=== PATIENT | male | born 1970 | race Caucasian/White ===

== ENCOUNTER 2022-03-06 06:47 | Day surgery (SDC) | payer BC, SELFPAY ==
[2022-03-06] VITALS (20 sets, daily range): BP systolic 139–227; BP diastolic 83–128; PULSE 54–75; RESP 12–22; TEMP 36.5–36.9; O2SAT 92–100; BMI 32.5
[2022-03-06] MEDS: OXYMETAZOLINE 0.05% NASAL SPRAY 1 SPRAY NOSTRIL-B (07:40)
[2022-03-06] MEDS: SODIUM CHLORIDE 0.9 % (FLUSH) 10 ML SYRINGE IVF (07:40)
[2022-03-06] MEDS: LACTATED RINGERS 1000 ML 1,000 ML 100 ML IV (07:40)
[2022-03-06] MEDS: COCAINE HCL 4 % 4 ML SOLUTION NOSTRIL-B (08:31)
[2022-03-06] MEDS: MUPIROCIN 1 GM PACKET 1 APPLIC TOPICAL (08:31)
[2022-03-06] MEDS: BUPIVACAINE 0.25 %/EPI 1:200K 30 ml 10 ML INJECTION (08:38)
[2022-03-06] MEDS: AYR SALINE NASAL GEL 1 APPLIC NOSTRIL-B (09:07)
[2022-03-06] MEDS: HYDRALAZINE HCL 20 MG/ML inj 10 MG IVP ×2 (09:10→09:22)
--- NOTE | 2022-03-06 09:12 | W.ANESCHARGE ---
Anesthesia Charges Start Date/Time Anesthesia Start Date: 03/06/22 Anesthesia Start Time: 08:16 Stop Date/Time Anesthesia Stop Date: 03/06/22 Anesthesia Stop Time: 09:04 Summary Emergency: No
[2022-03-06] MEDS: fentaNYL 100 MCG/2 ML inj 50 MCG IVP ×2 (09:13→09:20)
--- NOTE | 2022-03-06 09:54 | W.ANESCHARGE ---
Anesthesia Charges Start Date/Time Anesthesia Start Date: 03/06/22 Anesthesia Start Time: 08:16 Stop Date/Time Anesthesia Stop Date: 03/06/22 Anesthesia Stop Time: 09:04 Summary Emergency: No
--- NOTE | 2022-03-06 10:09 | W.PM.ENTPROC ---
Procedure Note Date of procedure: 03/06/22 Procedure: Preoperative diagnosis nasal obstruction, deviated septum, left inferior turbinate hypertrophy. Postoperative diagnosis same procedure nasal septoplasty submucous partial resection inferior turbinates Under general endotracheal anesthesia patient was prepped and draped in usual fashion nose injected and decongested. A right hemitransection incision was made. Left anterior and posterior tunnels were created. A vertical incision was made through the cartilage and a right posterior tunnel created. The posterior deflected portions of septal bone resected. A single piece was trimmed and returned to intraseptal space. The left left premaxillary wing deformity was infractured and 1 mm strip of inferior septal cartilage was resected. This left a more than adequate amount for dorsal and tip support. The hemitransfixion was closed with 2 4-0 chromic sutures. A stab incision was made in the anterior left inferior turbinate a tunnel created with a Karol dissector. The diana bone was outfractured and a conservative anterior submucous resection performed buttlee ann avitia. The Coblation Wand was used for hemostasis and to cauterize intramurally along the inferior 10% of the turbinate. Silastic stents were then secured with 3 0 nylon and a Merocel pack coated in Bactroban was placed in each side of the nose. The inferior nasal rim had a small crack or laceration and this was closed with a single 5 0 interrupted plain gut. The patient top seizure well was taken recovery in satisfactory condition. Blood loss was less than 25 mL. Surgeon: Jesús Zhu MD
[2022-03-06] MEDS: LACTATED RINGERS 1000 ML 1,000 ML 50 ML IV (10:10)
--- NOTE | 2022-03-06 10:11 | W.PM.ENTPN ---
ENT-PN: Subj Subjective Time Seen by Provider: 10:30 Date Seen: 03/06/22 Interval history: Immediately postop patient was somewhat hypertensive. Anesthesia treated this. He had moderately excessive bleeding but this had settled down by the time I saw him. Packs were available to place I would not place an as he seemed to be bleeding a normal amount after the hypertension was controlled Progress Note: A&P Assessment and plan (1) Hypertension: Status: Acute Plan Postoperative hypertension. Dr. Juan zarco was consulted and is planning on initiating antihypertensive medication. We will keep a close eye on him for the next couple of hours. Time Spent With Patient Total time spent: 20 Exam Narrative: Exam Narrative: Normal postop appearance to nose minimal bleeding at this time Const: Vital Signs, click to edit/add: Vital Signs - 24 hr 03/06/22 07:25 03/06/22 07:30 03/06/22 07:35 Temperature 98.4 F Pulse Rate 54 L Respiratory Rate 16 Blood Pressure 197/116 H 180/116 H 198/117 H Pulse Oximetry 96 Oxygen Delivery Me thod Room Air 03/06/22 09:05 03/06/22 09:20 03/06/22 09:25 Temperature 98.2 F Pulse Rate 62 62 70 Respiratory Rate 22 18 16 Blood Pressure 227/119 H 193/104 H 166/102 H Pulse Oximetry 98 98 98 Oxygen Delivery Me thod Blow By Blow By Blow By 03/06/22 09:10 03/06/22 09:15 03/06/22 09:30 Temperature 98.3 F Pulse Rate 71 63 68 Respiratory Rate 20 20 16 Blood Pressure 179/128 H 184/109 H 173/105 H Pulse Oximetry 100 100 99 Oxygen Delivery Me thod Blow By Blow By Blow By 03/06/22 09:35 03/06/22 09:40 03/06/22 09:45 Temperature Pulse Rate 75 73 71 Respiratory Rate 16 16 16 Blood Pressure 168/101 H 174/101 H 174/108 H Pulse Oximetry 99 98 98 Oxygen Delivery Me thod Blow By Blow By Blow By 03/06/22 09:50 03/06/22 09:55 Temperature 98.3 F Pulse Rate 68 66 Respiratory Rate 12 12 Blood Pressure 139/83 151/92 H Pulse Oximetry 98 97 Oxygen Delivery Me thod Blow By Blow By
[2022-03-06] MEDS: IBUPROFEN 200 MG TABLET PO (10:52)
== END 2022-03-06 08:21 | disposition home or self-care (01) ==
PROVIDERS: PCP Internal Medicine; Visit Provider Otolaryngology
PROC: (CPT 30520; principal; 2022-03-06 08:00)
DX: J34.2 Deviated nasal septum (principal); J34.3 Hypertrophy of nasal turbinates; J34.89 Other specified disorders of nose and nasal sinuses
CPT/HCPCS: 30520; 30140; 00160; A9270; J0330; J0360; J1100; J2405; J2704; J3010; J7120

== ENCOUNTER 2022-03-12 13:09 | Outpatient (CLI) | payer BC, SELFPAY ==
--- OUTSIDE RECORDS SUMMARY | 2022-03-12 13:12 | XMS_ITS | Clinical Summary ---
:1970 Author Organization [facility] [place] [address] Care Team Providers Name Role Phone Unknown, Doctor Primary Care Provider Unavailable Allergies Active Allergy Reactions Severity Noted Date Comments Alfuzosin Dizziness, Throat Swelling/Closing High 2020 Codeine Intolerance-Can't Take 11/05/2006 dizzi ness Medications Medication Sig Dispensed Refills Start Date End Date Status allopurinol (ZYLOPRIM) Take 1 tablet by 30 tablet 2 06/14/2018 Active 100 mg mouth once daily. tabletIndications: Gout involving toe of right foot, unspecified cause, unspecified chronicity Silodosin 4 mg Take 1 capsule by 30 capsule 11 09/05/2020 Active capIndications: Weak mouth once daily. urine stream Active Problems Not on file Immunizations Name Administration Dates Next Due COVID-19 vaccine (iyzico 12/11/2020, 10/23/2020 30mcg/0.3mL) PF, MDV Influenza A (H1N1), Inactivated 07/18/2009 Influenza Virus, Unspecified 06/04/2016, 04/17/2015, 013, 05/01/2013 Influenza, IIV3 (Age 6-35 mos) 05/01/2013 Influenza, IIV4 05/16/2020, 08/03/2019, 06/04/2016, 04/17/2015 Td, Preservative Free (age >= 7 07/29/2010 Years) Tdap 07/29/2010 Tdap, Unspecified 07/29/2010 Tetanus/Diptheria 07/29/2010 Social History Tobacco Use Types Packs/Day Years Used Date Never Smoker Smokeless Tobacco: Never Used Tobacco Cessation: Counseling Given: Yes Alcohol Use Standard Drinks/Week Comments Yes 0 (1 standard drink = 0.6 oz pure alcoho l) very moderate Alcohol Habits Answer Date Recorded How often do you have a drink containing alcohol? 2-4 times a month 01/03/2020 How many drinks containing alcohol do you have on a 1 or 2 01/03/2020 typical day when you are drinking? How often do you have six or more drinks on one Never 01/03/2020 occasion? Comment: Not asked Sex Assigned at Date Recorded Not on file Obstetrics History Last Filed Vital Signs Vital Sign Reading Time Taken Comments Blood Pressure 139/92 12/11/2020 11:41 AM CDT Pulse 70 12/11/2020 11:41 AM CDT Temperature - - Respiratory Rate 18 01/03/2020 10:59 AM CDT Oxygen Saturation 96% 12/11/2020 11:41 AM CDT Inhaled Oxygen Concentration - - Weight 111.9 kg (246 lb 9.6 oz) 12/11/2020 11:41 AM CDT Height - - Body Mass Index - - Plan of Treatment Health Maintenance Due Date Last Done Comments Depression screening for age 12+ 1981 BMI (ht and wt on same day) for 1987 age 18+ Hepatitis C screening for age 1005/02/1987 18-79 Lipids for age 45-75 2014 Colonoscopy through age 75 11/05/2016 11/05/2006, 7 Zoster (shingles) series for age 1005/02/2019 50+ (1 of 2) Tetanus booster 07/29/2020 07/29/2010, 07/29/2010, 07/29/2010 COVID-19 vaccine series (3 - 05/13/2021 12/11/2020, 021 Booster for Pfizer series) Influenza for age 50-64 03/05/2022 05/16/2020, 08/03/2019, 06/04/2016, Additional history exists Tdap Completed 07/29/2010, 07/29/2010 Results Not on filefrom Last 3 Months Insurance Payer Benefit Plan / Subscriber ID Effective Dates Phone Addre ss Type Group BLUE CROSS BLUE CROSS OF [id number] 2020-Present [address] [address] [place] [address] (Work) [id number] Care Teams Wheel Polisher Relationship Specialty Start Date End Date Unknown, Doctor PCP - General 03/03/06 .
[2022-03-12 17:20] LABS: Chloride* 100 mmol/L (96-114)
[2022-03-12 17:21] LABS: Albumin* 4.6 g/dL (3.3-5.0); Potassium* 4.3 mmol/L (3.6-5.1); Sodium* 138 mmol/L (135-149)
[2022-03-12 17:24] LABS: Alanine Aminotransferase* 25 U/L (4-50); Alkaline Phosphatase* 112 U/L (40-150); Aspartate Amino Transferase* 25 U/L (12-35); Bilirubin Total* 0.7 mg/dL (0.1-1.5); Blood Urea Nitrogen* 22 mg/dL (7-30); Calcium* 9.4 mg/dL (8.4-10.6); Carbon Dioxide* 27 mmol/L (20-32); Cholesterol* 232 mg/dL (90-199); Creatinine* 1.7 mg/dL (0.5-1.5); Estimated Glomerular Filt Rate 48 ml/min; Glucose* 100 mg/dL (60-115); Total Protein* 7.9 g/dL (6.0-8.3); Triglycerides* 275 mg/dL (40-149)
[2022-03-12 17:25] LABS: HDL Cholesterol* 37 mg/dL (>=40); LDL Cholesterol Calculated 140 mg/dL (<100)
== END 2022-03-12 13:10 | disposition home or self-care (01) ==
PROVIDERS: PCP Internal Medicine; Visit Provider Internal Medicine
DX: I10 Essential (primary) hypertension (principal); Z12.5 Encounter for screening for malignant neoplasm of prostate; Z13.6 Encounter for screening for cardiovascular disorders
CPT/HCPCS: 80053; 80061; 84153; 87086

== ENCOUNTER 2022-04-10 14:57 | Outpatient (CLI) | payer BC, SELFPAY ==
--- OUTSIDE RECORDS SUMMARY | 2022-04-10 14:59 | XMS_ITS | Clinical Summary ---
:1970 Author Organization [facility] [place] [address] Care Team Providers Name Role Phone Unknown, [...] Name Administration Dates Next Due COVID-19 vaccine (Knok 12/11/2020, 10/23/2020 30mcg/0.3mL) PF, MDV Influenza A [...] Type Group BLUE CROSS BLUE CROSS OF [id number] 2020-Present [address] [address] [place] [address] (Work) [id number] Care Teams Improvement Advisor Relationship Specialty Start Date End Date Unknown, Doctor PCP - General 03/03/06 .
--- NOTE | 2022-04-10 15:00 | CRLHL7_ITS ---
For Patients: As a result of the Century Cures Act, medical imaging exams and procedure reports are released immediately into your electronic medical record. You may view this report before your referring provider. If you have questions, please contact your health care provider. INDICATION: Hypertension TECHNIQUE: Grayscale, color Doppler and power Doppler evaluation of the renal arteries. COMPARISON: None available FINDINGS: BILATERAL RENAL ARTERY DUPLEX ULTRASOUND ABDOMINAL AORTA: Peak systolic velocity = 113 cm/s. No aortic aneurysm. RIGHT KIDNEY: 9.6 cm in length. There is no hydronephrosis. Peak systolic velocity = 240 cm/second at the origin. Renal artery to aortic peak systolic velocity ratio = 2.1 Resistive indices: Less than 0.7 Renal vein = patent LEFT KIDNEY: 10.2 cm in length. There is no hydronephrosis. Peak systolic velocity = 148 cm/second at the proximal renal artery Renal artery to aortic peak systolic velocity ratio = 1.3 Resistive indices: Less than 0.7 Renal vein = patent IMPRESSION: Elevated peak systolic velocity at the right renal origin of 240 cm/second with a slightly elevated right renal artery ratio of 2.1. This could signify some degree of stenosis at the right renal artery origin and CTA suggested for further evaluation. Remainder unremarkable. Dictated by eKl Hugo MD @ 04/13/2022 9:30:47 AM (Electronically Signed)
== END 2022-04-10 14:58 | disposition home or self-care (01) ==
LOC: US 14:58
PROVIDERS: PCP Internal Medicine; Visit Provider Internal Medicine Nephrology
DX: I10 Essential (primary) hypertension (principal); N18.9 Chronic kidney disease, unspecified
CPT/HCPCS: 76775; 93975

== ENCOUNTER 2022-08-05 14:31 | Outpatient (CLI) | payer BC, SELFPAY ==
--- NOTE | 2022-08-05 14:00 | CRLHL7_ITS ---
For Patients: As a result of the Century Cures Act, medical imaging exams and procedure reports are released immediately into your electronic medical record. You may view this report before your referring provider. If you have questions, please contact your health care provider. INDICATION: RUQ PAIN COMPARISON: Renal Doppler ultrasound 04/10/2022. Noncontrast CT abdomen and pelvis 06/28/2013 TECHNIQUE: Real time alvarez scale imaging and color Doppler analysis was performed of the right upper quadrant. FINDINGS: The liver is diffusely coarsened and echogenic. Hypoechoic solid nodule is present within the right hepatic lobe measuring 1.3 x 1.2 x 1.3 cm. An additional hypoechoic solid nodule is present within the right hepatic lobe superiorly measuring 2.3 x 1.4 x 1.9 cm. A 3rd hypoechoic nodule is present within the left hepatic lobe measuring 1.7 x 1.2 x 1.7 cm. Simple cyst within the left hepatic lobe measuring 1.3 x 1.0 x 1.6 cm. There is a normal appearance of the hepatic IVC and proximal abdominal aorta. There is no evidence of ascites. The gallbladder is mildly distended and there is mild layering sludge. The gallbladder wall measures 2 mm in thickness. The common bile duct measures 10 mm in diameter at the level of the jc hepatis. The pancreas appears normal. There is no evidence of a stone or hydronephrosis within the right kidney. The right kidney measures 11.9 cm in length. IMPRESSION: Diffuse hepatic steatosis with 3 solid hypoechoic nodules within the liver, indeterminate. An incidental cyst is also present. Further evaluation with pre and post-contrast MRI of the liver recommended. Mildly distended gallbladder with mild layering dependent sludge and distension of the common bile duct measuring up to 1 cm. Further evaluation with HIDA scan suggested. Dictated by Kel Hugo MD @ 08/06/2022 10:39:28 AM (Electronically Signed)
== END 2022-08-05 14:32 | disposition home or self-care (01) ==
LOC: US 14:32
PROVIDERS: PCP Internal Medicine; Visit Provider Internal Medicine Nephrology
DX: R10.11 Right upper quadrant pain (principal); K76.0 Fatty (change of) liver, not elsewhere classified; K76.9 Liver disease, unspecified
CPT/HCPCS: 76705

== ENCOUNTER 2022-08-06 14:07 | Outpatient (CLI) | payer BC, SELFPAY ==
[2022-08-06 14:24] LABS: Creatinine Urine 245.1 mg/dL
[2022-08-06 14:31] LABS: Albumin* 4.5 g/dL (3.3-5.0); Chloride* 104 mmol/L (96-114); Potassium* 3.9 mmol/L (3.6-5.1); Sodium* 140 mmol/L (135-149)
[2022-08-06 14:33] LABS: Creatinine* 1.6 mg/dL (0.5-1.5); Estimated Glomerular Filt Rate 51 ml/min
[2022-08-06 14:34] LABS: Blood Urea Nitrogen* 23 mg/dL (7-30); Calcium* 9.1 mg/dL (8.4-10.6); Carbon Dioxide* 28 mmol/L (20-32); Glucose* 91 mg/dL (60-115); Phosphorus* 3.7 mg/dL (2.5-4.5); Uric Acid* 9.1 mg/dL (2.2-8.4)
[2022-08-06 14:41] LABS: Microalbumin Creatinine Ratio 80 mg/g (0-30); Microalbumin Urine 21 mg/dL
== END 2022-08-06 14:08 | disposition home or self-care (01) ==
PROVIDERS: PCP Internal Medicine; Visit Provider Internal Medicine Nephrology
DX: I10 Essential (primary) hypertension (principal); N18.9 Chronic kidney disease, unspecified
CPT/HCPCS: 80069; 82043; 82570; 84550; 87086

== ENCOUNTER 2022-08-19 10:08 | Outpatient (CLI) | payer BC, SELFPAY ==
--- NOTE | 2022-08-19 10:15 | CRLHL7_ITS ---
For Patients: As a result of the Century Cures Act, medical imaging exams and procedure reports are released immediately into your electronic medical record. You may view this report before your referring provider. If you have questions, please contact your health care provider. Indication: RUQ PAIN, GALLBLADDER SLUDGE, CYSTS IN LIVER Technique: Multiphasic, multi sequence MRI of the abdomen without and with intravenous contrast. 15 mL Dotarem administered intravenously. In addition, dedicated thin and thick slab MRCP images obtained. Comparison: Ultrasound dated 08/05/2022 Findings: The liver is non cirrhotic in morphology. Mild dropout on out of phase images compared to in phase images suggest hepatic steatosis. 10 mm liver cyst in segment 6. A 16 mm cyst is seen in segment 5 on image 26, series 8. An 11 mm lesion in segment 5 on image 24, series 8 demonstrates moderate T2 hyperintensity, hypointensity on T1 weighted images, and on the portal venous phase which is the earliest postcontrast exam, it is uniformly enhancing. On delayed phase sequences it is still hyperenhancing. A tiny lesion in segment 5 on image 26, series 8 appears to have similar characteristics. Patent portal and hepatic veins. The spleen is normal in size. Patent splenic and mesenteric veins. No ascites. No intra or extrahepatic biliary ductal dilatation. No suspicious filling defects or biliary strictures. The pancreatic duct is normal in caliber. No gallbladder distention or gallstones. The pancreatic parenchyma appears normal on T1 weighted fat saturated images. No suspicious mass lesion following contrast administration. Bilateral adrenal glands are normal in appearance. The kidneys enhance symmetrically without hydronephrosis. No suspicious lymphadenopathy in the abdomen. Visualized bowel is nondilated. No pleural or pericardial effusion in the lung bases. Bone marrow signal appears normal. Impression: 1. Diffuse hepatic steatosis. 2. Two of the liver lesions are simple cysts. 3. One or 2 additional tiny lesions in the inferior right hepatic lobe are indeterminate but favored to represent flash filling hemangiomas. The atypical hypoechoic appearance on the ultrasound may be related to underlying hepatic steatosis. Consider follow-up MRI in 3-6 months. 4. Gallbladder and biliary system appear normal. Dictated by Franklin Mcneill MD @ 08/24/2022 3:20:00 PM (Electronically Signed)
== END 2022-08-19 10:09 | disposition home or self-care (01) ==
LOC: MRI 10:08
PROVIDERS: PCP Internal Medicine; Visit Provider Internal Medicine Nephrology
DX: R10.11 Right upper quadrant pain (principal); K82.8 Other specified diseases of gallbladder; K76.0 Fatty (change of) liver, not elsewhere classified; K76.9 Liver disease, unspecified; K76.89 Other specified diseases of liver
CPT/HCPCS: 74183; 80076; A9575

== ENCOUNTER 2022-09-21 14:47 | Outpatient (CLI) | payer OTHER, SELFPAY | END 2022-09-21 14:48 | disposition home or self-care (01) | LOC: NFLDREF 14:49 | PROVIDERS: PCP Internal Medicine; Visit Provider Internal Medicine Nephrology | DX: Z01.818 Encounter for other preprocedural examination (principal); I10 Essential (primary) hypertension; E66.9 Obesity, unspecified; E78.5 Hyperlipidemia, unspecified; N18.9 Chronic kidney disease, unspecified | CPT/HCPCS: 80069; 82043; 82570 ==

== ENCOUNTER 2022-10-12 06:59 | Day surgery (SDC) | payer OTHER, SELFPAY ==
[2022-10-12] VITALS (17 sets, daily range): BP systolic 118–153; BP diastolic 71–96; PULSE 48–64; RESP 12–20; TEMP 36.2–36.8; O2SAT 92–99; BMI 28.3
[2022-10-12] MEDS: LACTATED RINGERS 1000 ML 1,000 ML 100 ML IV (07:42)
[2022-10-12] MEDS: SODIUM CHLORIDE 0.9 % (FLUSH) 10 ML SYRINGE IVF (07:43)
--- NOTE | 2022-10-12 07:44 | SUR.PREOP ---
Covid test noted by RN NEGATIVE
--- NOTE | 2022-10-12 08:38 | W.ANESCHARGE ---
Anesthesia Charges Start Date/Time Anesthesia Start Date: 10/12/22 Anesthesia Start Time: 08:51 Stop Date/Time Anesthesia Stop Date: 10/12/22 Anesthesia Stop Time: 10:15
--- NOTE | 2022-10-12 08:43 | P.GSOP_ITS ---
Operative Note Date of procedure: 10/12/22 Pre-op diagnosis: 1. Chronic cholecystitis. 2. Umbilical hernia. Post-op diagnosis: Same Type of Procedure: 1. Laparoscopic cholecystectomy. 2. Umbilical hernia repair without mesh. Indications: 52-year-old male was seen in clinic for evaluation of right upper quadrant abdominal pain that started a few months ago. He initially developed an episode of severe right flank pain that was wrapping around the right upper quadrant. This continued for a week. Since then he continued to have low background of pain in the right upper quadrant. He was not sure what was making the pain better or worse. However, prior to his visit in clinic he felt ill after eating a hamburger for dinner. Patient eliminated fat from his diet and his painful episodes were mild. Patient had a gallbladder ultrasound that showed indeterminate liver nodules. His gallbladder had sludge in the gallbladder wall was 2 mm. Patient's common bile duct was measuring at 10 mm. There was no pericholecystic fluid. patient's liver function tests were normal. Patient then had an abdominal MRI and MRCP that showed that the larger nodules in the liver were cysts and the smaller nodules were difficult to characterize but were more likely to be hemangiomas. Patient's MRCP did not show any biliary duct masses or filling defect concerning for common bile duct stone. given patient's clinical presentation and his imaging findings, laparoscopic cholecystectomy was recommended. The procedure was discussed in detail. The risks associated pr ocedure including infection, bleeding, injury to the common bile duct, and injury to intra-abdominal organs were all discussed with the patient, and he agreed to proceed. Procedure Description: After discussing the risks and benefits of the procedure, the patient signed informed consent.? The operative site was marked and the patient was brought to the operating room and placed on the operating table in supine position.? Care was taken to pad the patient's pressure points.?? The patient was then intubated by anesthesia.?? The operative site was then prepped and draped in the usual sterile fashion.? A time-out was then performed. A 5-mm laparoscopy port was placed in the left upper quadrant guided by a 5-mm laparoscope placed into a translucent trochar.~ Passage through the layers of the abdominal wall was visualized with the laparoscope.~ A pneumoperitoneum was established. A 0-degree 5-mm laparoscope was advanced into the abdomen. The abdomen was briefly surveyed, and no adhesions were noted. A 10-mm port were placed infraumbilically through the existing umbilical hernia defect and two more 5 mm ports were placed on the right under direct visualization by laparoscope. The camera was then changed to 10 mm 30-degree scope and placed into the abdomen through the 10 mm port. The left upper quadrant port entrance was examined and no injury to intra-abdominal organs was identified. The gallbladder was identified, the fundus grasped and retracted cephalad. Omental adhesions were taken down off the gallbladder with cautery. The infundibulum was grasped and retracted laterally, exposing the peritoneum overlying the triangle of Calot. This was then divided and exposed in a blunt fashion and with hook cautery. Common bile duct was not identified but care was taken not to injure it. The cystic duct was clearly identified and bluntly dissected circumferentially. Cystic artery was identified and tissues around it were dissected off. The cystic artery and the cystic duct were clearly going into the gallbladder. The cystic duct was then doubly ligated with surgical clips on the patient's side and singly clipped on the gallbladder side and divided. The cystic artery was then similarly ligated with clips and divided as well. The gallbladder was dissected from the liver bed in retrograde fashion using hookcautery. There was a prominent vein in the medial gallbladder fossa. This was controlled with a single clip on the patient's side and divided with cautery on the gallbladder side. The gallbladder was placed into an Endo-Catch bag and removed through the infraumbilical incision. Surgical site was examined for bleeding. No bleeding was seen in the surgical field. The fat around the umbilical defect was dissected with cautery. Intra-abdominal fat was dissected away from the fascial opening with cautery. The umbilical hernia defect was approximately 9 mm. This was then closed with interrupted 0-0 Nurolon stitches. This closure was examined intra-abdominally and no intra- abdominal organs were incarcerated in the closure. Pneumoperitoneum was completely reduced after viewing removal of the trocars u nder direct vision. The skin was then closed with 4-0 monocryl and steristrips were applied. Instrument, sponge, and needle counts were correct at closure and at the conclusion of the case. The patient was transferred to PACU in stable condition. Findings: No acute inflammation noted around the gallbladder. The gallbladder was mildly distended. Anesthesia: GETA Surgeon: Ted Mg MD Estimated blood loss (mL): 5 Specimen: Gallbladder Condition: stable Disposition: PACU
--- NOTE | 2022-10-12 09:31 | W.ANESCHARGE ---
Anesthesia Charges Start Date/Time Anesthesia Start Date: 10/12/22 Anesthesia Start Time: 08:51 Stop Date/Time Anesthesia Stop Date: 10/12/22 Anesthesia Stop Time: 10:15
[2022-10-12] MEDS: BUPIVACAINE 0.25% 30 ML INJECTION (09:50)
[2022-10-12] MEDS: fentaNYL 100 MCG/2 ML inj 50 MCG IVP ×2 (10:40→10:51)
[2022-10-12] MEDS: TRAMADOL HCL 50 MG TABLET PO (11:18)
--- NOTE | 2022-10-12 12:21 | SUR.PHASEII ---
Pt up in chair dressed with minimal assist pain better had alot of burping and said felt better will allow to rest a bit longer and then discharged to home
== END 2022-10-12 13:10 | disposition home or self-care (01) ==
PROVIDERS: PCP Internal Medicine; Visit Provider Surgery
PROC: 0FT44ZZ Resection of Gallbladder, Percutaneous Endoscopic Approach (ICD-10-PCS; CPT 47562; principal; 2022-10-12 08:15)
DX: K81.1 Chronic cholecystitis (principal); K42.9 Umbilical hernia without obstruction or gangrene
CPT/HCPCS: 47562; 49591; 00790; 88304; A9270; J1100; J2250; J2405; J2704; J3010; J3490; J7120

== ENCOUNTER 2023-01-25 11:43 | Outpatient (CLI) | payer OTHER, SELFPAY | END 2023-01-25 11:44 | disposition home or self-care (01) | LOC: NFLDREF 01-27 11:54 | PROVIDERS: PCP Internal Medicine; Referring Provider Internal Medicine; Visit Provider Internal Medicine Nephrology | DX: I10 Essential (primary) hypertension (principal); M10.9 Gout, unspecified; N18.9 Chronic kidney disease, unspecified; N20.9 Urinary calculus, unspecified | CPT/HCPCS: 80069; 82043; 82570; 84550 ==

== ENCOUNTER 2023-01-27 09:00 | Outpatient (CLI) | payer OTHER, SELFPAY | END 2023-01-27 09:01 | disposition home or self-care (01) | LOC: NFLDREF 02-03 02:50 | PROVIDERS: PCP Internal Medicine; Referring Provider Internal Medicine; Visit Provider Internal Medicine Nephrology | DX: I10 Essential (primary) hypertension (principal); M10.9 Gout, unspecified; N18.9 Chronic kidney disease, unspecified; N20.9 Urinary calculus, unspecified | CPT/HCPCS: 82340; 82436; 82507; 83735; 83945; 83986; 84105; 84133; 84300; 84392; 84560 ==

== ENCOUNTER 2023-05-31 09:44 | Outpatient (CLI) | payer OTHER, SELFPAY ==
--- NOTE | 2023-05-31 10:00 | CRLHL7_ITS ---
For Patients: As a result of the Century Cures Act, medical imaging exams and procedure reports are released immediately into your electronic medical record. You may view this report before your referring provider. If you have questions, please contact your health care provider. INDICATION: Liver cysts. COMPARISON: MRI dated 08/19/2022, and CT dated 06/28/2013. TECHNIQUE: Renal stone protocol CT of the abdomen and pelvis without contrast. FINDINGS: No right-sided renal calculi. Nonobstructive calculus in the lower pole left kidney measures 5 mm. No hydronephrosis or ureterectasis. No urinary bladder calculi. Incomplete distention of the urinary bladder, however. The prostate and seminal vesicles appear grossly unremarkable/symmetric. Mild colonic diverticulosis in the sigmoid colon. The pancreas, adrenal glands, and spleen appear unremarkable. Cholecystectomy change. Small liver cysts. The lung bases appear normal. The bowel is normal in caliber. No abdominal aortic aneurysm. No aggressive-appearing osseous lesion. IMPRESSION: Small nonobstructive calculus in the lower pole left kidney. Please note that all CT scans at this facility use dose modulation, iterative reconstruction, and/or weight-based dosing when appropriate to reduce radiation dose to as low as reasonably achievable. Dictated by Franklin Mcneill MD @ 06/02/2023 2:59:45 PM (Electronically Signed)
== END 2023-05-31 09:45 | disposition home or self-care (01) ==
LOC: CT 09:45
PROVIDERS: PCP Internal Medicine; Visit Provider Internal Medicine Nephrology
DX: K76.89 Other specified diseases of liver (principal); N20.0 Calculus of kidney
CPT/HCPCS: 74176

== ENCOUNTER 2023-06-03 11:52 | Outpatient (CLI) | payer OTHER, SELFPAY | END 2023-06-03 11:53 | disposition home or self-care (01) | LOC: NFLDREF 15:52 | PROVIDERS: PCP Internal Medicine; Referring Provider Internal Medicine; Visit Provider Internal Medicine Nephrology | DX: I10 Essential (primary) hypertension (principal); M10.9 Gout, unspecified; N18.9 Chronic kidney disease, unspecified; N20.9 Urinary calculus, unspecified | CPT/HCPCS: 80069; 82043; 82310; 82570; 83970; 84550 ==

== ENCOUNTER 2023-06-08 08:15 | Outpatient (CLI) | payer OTHER, SELFPAY | END 2023-06-08 08:16 | disposition home or self-care (01) | LOC: NFLDREF 06-16 07:29 | PROVIDERS: PCP Internal Medicine; Referring Provider Internal Medicine; Visit Provider Internal Medicine Nephrology | DX: I10 Essential (primary) hypertension (principal); M10.9 Gout, unspecified; N18.9 Chronic kidney disease, unspecified; N20.9 Urinary calculus, unspecified | CPT/HCPCS: 82340; 82436; 82507; 83735; 83945; 83986; 84105; 84133; 84300; 84392; 84560 ==

== ENCOUNTER 2023-12-06 13:22 | Outpatient (CLI) | payer OTHER, SELFPAY ==
--- OUTSIDE RECORDS SUMMARY | 2023-12-23 14:55 | XMS_ITS | Clinical Summary ---
Author Organization [facility] Address [place], [place] [address] Care Team Providers Care Picc Nurse Name Role Phone Unknown, Doctor Primary Care Provider Unavailabl e Allergies Active Allergy Reactions Criticality Noted Date Comments Alfuzosin Dizziness,Throat Swelling/Closing High Codeine Intolerance-Can't Take 11/05/2006 dizziness Medications Medication Sig Dispensed Refills Start Date End Date Status allopurinol (ZYLOPRIM) 100 mg tabletIndications:Gou t involving toe of right foot, unspecified cause, unspecified chronicity Take 1 tablet by mouth once daily. 30 tablet 2 06/14/2018 Active Silodosin 4 mg capIndications:Weak urine stream Take 1 capsule by mouth once daily. 30 capsule 11 09/05/2020 Active Immunizations Name Administration Dates Next Due COVID-19 vaccine ([employer] 30mcg/0.3mL) PF MDSeema 12/11/2020,10/23/2020 Influenza A (H1N1), Inactivated 07/18/2009 Influenza Virus, Unspecified 06/04/2016, 04/17/2015,05/01/2013,2012 Influenza, IIV3 (Age 6-35 mos) 05/01/2013 Influenza, IIV4 05/16/2020, 0,06/04/2016,2014 Td, Preservative Free (age > = 7 Years) 07/29/2010 Tdap 07/29/2010 Tdap, Unspecified 07/29/2010 Tetanus/Diptheria 07/29/2010 Social History Tobacco Use Types Packs/Day Years Used Date Smoking Tobacco: Never Smokeless Tobacco: Never Tobacco Cessation:Counseling Given: Yes Alcohol Use Standard Drinks/Week Comments Yes 0 (1 standard drink = 0.6 oz pur e alcohol) very moderate Sex and Gender Information Value Date Recorded Sex Assigned at Not on file Gender Identity Not on file Sexual Orientation Not on file Obstetrics History Last Filed Vital Signs Vital Sign Reading Time Taken Comments Blood Pressure 139/92 12/11/2020 11:41 AM CDT Pulse 70 12/11/2020 11:41 AM CDT Temperature - - Respiratory Rate 18 01/03/2020 10:5 9 AM CDT Oxygen Saturation 96% 12/11/2020 11: 41 AM CDT Inhaled Oxygen Concentration - - Weight 111.9 kg (246 lb 9.6 oz) 021 11:41 AM CDT Height - - Body Mass Index - - Plan of Treatment Health Maintenance Due Date Last Done Comments Depression screening for age 12+ 1981 HIV for age 15-65 1984 BMI (ht and wt on same day) for age 18+ 1987 Hepatitis C screening for age 18-79 1987 Lipids for age 45-75 2014 Colonoscopy through age 75 11/05/2016 11/05/2006, Zoster (shingles) series for age 50+ (1 of 2) 2019 Tetanus booster 07/29/2020 07/29/2010, 07/06, 07/29/2010 COVID-19 vaccine series ( season) 2023 08/01/2021, 12/11/2020, 10/23/2020 Influenza for age 50-64 03/05/2024 05/16/20 20, 08/03/2019, 06/04/2016, Additional history exists Tdap Completed 07/29/2010, 07/29/2010 Pneumococcal series for age 6-64 Aged Out No longer eligible based on patient's age to complete this topic Procedures Procedure Name Priority Date/Time Associated Diagnosis Comments SCAN-COLONOSCOPY 11/05/2006 11:2 7 AM CDT from Last 3 Months or Most Recently Relevant to Health Maintenance Results * SCAN-COLONOSCOPY (11/05/2006 11:27 AM CDT) Scanner OTHER from Last 3 Months or Most Recently Relevant to Health Maintenance Care Teams Picc Nurse Relationship Specialty Start Date End Date Unknown, Doctor . PCP - General 03/03/06
== END 2023-12-06 13:23 | disposition home or self-care (01) ==
LOC: NFLDREF 12-23 14:54
PROVIDERS: PCP Internal Medicine; Referring Provider Internal Medicine; Visit Provider Internal Medicine Nephrology
DX: N20.9 Urinary calculus, unspecified (principal); I12.9 Hypertensive chronic kidney disease with stage 1 through stage 4 chronic kidney disease, or unspecified chronic kidney disease; N18.31 Chronic kidney disease, stage 3a
CPT/HCPCS: 80069; 82043; 82306; 82570; 82728; 83540; 83550; 83970; 84550; 87086

== ENCOUNTER 2024-06-15 13:13 | Outpatient (CLI) | payer OTHER, SELFPAY | END 2024-06-15 13:14 | disposition home or self-care (01) | PROVIDERS: PCP Internal Medicine; Visit Provider Internal Medicine | DX: R10.9 Unspecified abdominal pain (principal); I10 Essential (primary) hypertension | CPT/HCPCS: 80053; 85379; 87086 ==

== ENCOUNTER 2024-06-23 07:00 | Outpatient (CLI) | payer OTHER, SELFPAY ==
--- NOTE | 2024-06-23 07:15 | CRLHL7_ITS ---
For Patients: As a result of the Century Cures Act, medical imaging exams and procedure reports are released immediately into your electronic medical record. You may view this report before your referring provider. If you have questions, please contact your health care provider. INDICATION: Abdominal pain COMPARISON: CT 05/31/23, MRI 08/19/22, US 08/05/22 TECHNIQUE: Real time alvarez scale imaging and color Doppler analysis was performed of the right upper quadrant. FINDINGS: Liver echotexture is diffusely coarsened and increased. Liver measures 16.3 cm. Simple cyst within the inferior right hepatic lobe measures 1.4 x 1.2 x 1.7 cm. Main portal vein measures 1.2 cm. Antegrade flow in the main portal vein measuring 22.3 cm/second. Gallbladder absent. Common bile duct is distended measuring up to 13.6 millimeters. Possible echogenic foci within the distal common bile duct. The pancreas is difficult to visualize due to overlying bowel gas. Aorta and IVC unremarkable. Normal right kidney without hydronephrosis. Right kidney measures 11.1 cm. IMPRESSION: Diffuse hepatic steatosis. Incidental simple intrahepatic cyst. Status post cholecystectomy with prominence of the common bile duct measuring up to 13.6 millimeters. Possible choledocholithiasis. Consider MRCP for further evaluation. Dictated by Kel Hugo MD @ 06/23/2024 9:28:21 AM (Electronically Signed)
== END 2024-06-23 07:01 | disposition home or self-care (01) ==
LOC: US 07:00
PROVIDERS: PCP Internal Medicine; Visit Provider Internal Medicine
DX: R10.9 Unspecified abdominal pain (principal); K76.0 Fatty (change of) liver, not elsewhere classified; K76.89 Other specified diseases of liver
CPT/HCPCS: 76705

== ENCOUNTER 2024-07-06 07:08 | Outpatient (CLI) | payer OTHER, SELFPAY ==
--- NOTE | 2024-07-06 07:15 | CRLHL7_ITS ---
For Patients: As a result of the Century Cures Act, medical imaging exams and procedure reports are released immediately into your electronic medical record. You may view this report before your referring provider. If you have questions, please contact your health care provider. INDICATION: Abdominal pain TECHNIQUE: 1.5 T MRI of the abdomen was performed with T2 weighted imaging; in and out of phase imaging; 3D MRCP imaging was obtained. No intravenous contrast was administered COMPARISON: Abdominal ultrasound 06/23/2024 FINDINGS: Lungs: The lung bases are clear. No pleural or pericardial effusion. Liver: Homogeneous liver parenchyma. No hepatic masses. Right hepatic lobe T2 hyperintense and T2 intermediate lesions are incompletely characterized in the absence of intravenous contrast but possibly benign cysts and hemangiomas. Hepatic steatosis. Biliary tree and gallbladder: Prior cholecystectomy. Possible round T2 hypointense lesion in the distal common bile duct measuring 4 mm (01/25) appreciated only on T2 HASTE axial and coronal sequences, although not definitely seen on MRCP images or axial thin T2 SPAIR. Similar mild intrahepatic dilation and moderate dilation of the common bile duct measuring up to 1.3 cm. Spleen: Unremarkable Pancreas: Fatty atrophy of the pancreatic parenchyma. No pancreatic masses. No pancreatic duct dilation. Adrenal glands: Unremarkable. Kidneys and ureters: No renal masses or hydronephrosis. GI tract: No evidence of obstruction or inflammation. Vasculature: The IVC and aorta are normal in caliber. No abdominal aortic aneurysm. Lymph nodes: No lymphadenopathy. Abdominal wall: Unremarkable Bones: Degenerative change of the imaged spine. IMPRESSION: 1. Possible choledocholithiasis versus artifact with similar moderate intra and extrahepatic biliary dilation. Consider further evaluation with ERCP. Please correlate with biliary labs for evidence of obstruction. 2. Hepatic steatosis. Dictated by Cherry Bailon MD @ 07/06/2024 11:19:29 AM (Electronically Signed)
== END 2024-07-06 07:09 | disposition home or self-care (01) ==
PROVIDERS: PCP Internal Medicine; Visit Provider Internal Medicine
DX: R10.9 Unspecified abdominal pain (principal); K76.0 Fatty (change of) liver, not elsewhere classified
CPT/HCPCS: 74181

== ENCOUNTER 2024-08-02 08:53 | Outpatient (CLI) | payer OTHER, SELFPAY | END 2024-08-02 08:54 | disposition home or self-care (01) | LOC: NFLDREF 08-07 02:38 | PROVIDERS: PCP Internal Medicine; Referring Provider Internal Medicine Nephrology; Visit Provider Internal Medicine Nephrology | DX: I12.9 Hypertensive chronic kidney disease with stage 1 through stage 4 chronic kidney disease, or unspecified chronic kidney disease (principal); N18.31 Chronic kidney disease, stage 3a; M10.9 Gout, unspecified; N20.9 Urinary calculus, unspecified; E78.5 Hyperlipidemia, unspecified | CPT/HCPCS: 80061; 80069; 82043; 82570; 83970; 84450; 84460; 84550; 86140; 87086 ==

== ENCOUNTER 2024-11-19 06:49 | Emergency (ER) | payer OTHER, SELFPAY ==
[2024-11-19 06:56] VITALS: BP 179/97; PULSE 64; RESP 20; TEMP 36.3; O2SAT 97; BMI 29.7
--- NOTE | 2024-11-19 07:13 | CRLHL7_ITS ---
For Patients: As a result of the Century Cures Act, medical imaging exams and procedure reports are released immediately into your electronic medical record. You may view this report before your referring provider. If you have questions, please contact your health care provider. INDICATION: Left lower quadrant abdominal pain TECHNIQUE: CT abdomen and pelvis acquired with 110 cc Isovue 370 IV contrast. COMPARISON: MR abdomen 07/06/2024, CT abdomen pelvis 05/31/2023. FINDINGS: Lower chest: Stable 2 millimeter nodule in the right middle lobe (3/11), and in the left lower lobe (3/13), stable since 2022 and likely benign. Liver: Hepatic cysts. Gallbladder and bile ducts: Cholecystectomy. Intra and extrahepatic biliary ductal dilation is slightly increased compared to 07/06/2024, with the common bile duct measuring 13 millimeters. Pancreas: Unremarkable. No mass or inflammation. Spleen: Unremarkable. Normal in size. No masses. Adrenal glands: Unremarkable. Kidneys: Moderate left hydronephrosis and hydroureter with a 7 x 4 x 7 millimeter stone at the left UVJ (2, ). Delayed left nephrogram and trace perinephric fluid. No hydronephrosis or nephrolithiasis in the right kidney. GI tract: Small duodenal diverticulum. No obstruction. Minimal colonic diverticulosis without diverticulitis. Appendectomy. Vasculature: Abdominal aorta is normal in caliber. Mesenteric arteries are patent. Hook shaped celiac artery with mild stenosis of the origin can be seen with median arcuate ligament syndrome. Lymph nodes: No lymphadenopathy. Peritoneum/Abdominal Wall: Unremarkable. Pelvis: Unremarkable. Bones: Mild degenerative disease of the hips. IMPRESSION: There is a 7 x 4 x 7 millimeter stone at the left UVJ with resulting moderate left hydronephrosis, hydroureter, and renal congestion. Slightly increased intra and extrahepatic biliary ductal dilation compared to prior. If LFTs are abnormal, consider previously suggested ERCP. Please note that all CT scans at this facility use dose modulation, iterative reconstruction, and/or weight-based dosing when appropriate to reduce radiation dose to as low as reasonably achievable. Dictated by Arlene Key MD @ 11/19/2024 8:11:49 AM (Electronically Signed)
--- NOTE | 2024-11-19 07:15 | ED_ITS ---
HPI - General Adult General Chief complaint: Back Injury/Pain Stated complaint: lower back pain Time Seen by Provider: 11/19/24 07:01 Source: patient Mode of arrival: ambulatory Limitations: no limitations History of Present Illness HPI narrative: 54-year-old male presents with left lower quadrant abdominal pain that radiates the left flank for the past few hours. Also has a feeling of incomplete bladder emptying and suprapubic tenderness. No fever. No diarrhea, no nausea and vomiting. Originally thought it was his IBS acting up. No history of inflammatory bowel disease. Last colonoscopy was about 4 years ago. Mother had a history of colon cancer, therefore he gets colonoscopies about every 5 years. Does not report any known history of diverticular disease. He notes no blood in his urine. Pain is achy and constant and not worse with movement. Did not try taking any medications to help with his symptoms. Has had kidney stones in the past, reports that the pain does not quite feel similar. No prior history of diverticulitis. As well as abdominal surgeries, he has had a prior appendectomy and a prior cholecystectomy. Reports that these were both uncomplicated. Does not take any anticoagulants. Appetite elimination had been normal up until this morning. No geronimo dysuria but does have a feeling of incomplete bladder emptying. Bladder scans were 50-70 mL in triage. Was able to void about 80 mL prior to my interview. Past medical history notable for hypertension, gout. Home meds are amlodipine and allopurinol. Reports that he uses prednisone a couple of times per year for gout flares. Nonsmoker. ROS is notable for the abdominal/urogenital symptoms only, otherwise denies times 12 systems. Related Data Home Medications ?Medication ?Instructions ?Recorded ?Confirmed amlodipine 10 mg tablet 10 mg PO QDAY 08/03/22 08/07/24 prednisone 20 mg tablet 20 mg PO BID PRN 12/10/23 08/07/24 Previous Rx's ?Medication ?Instructions ?Recorded allopurinol 200 mg tablet 200 mg PO QDAY #90 tabs 09/27/23 tamsulosin 0.4 mg capsule (Flomax) 0.4 mg PO DAILY #10 caps 11/19/24 Allergies Allergy/AdvReac Type Severity Reaction Status Date / Time oxycodone Allergy Intermediate Vomiting Verified 11/19/24 07:53 codeine AdvReac Intermediate disassociat Verified 11/19/24 07:53 ion [facility] Medical History Right sided abdominal pain ?R10.9 - Unspecified abdominal pain (ICD-10) H/O irritable bowel syndrome ?Z87.19 - Personal history of other diseases of the digestive system (ICD-10) Hypertension ?I10 - Essential (primary) hypertension (ICD-10) History of Holter monitoring (2014) ?Z98.890 - Other specified postprocedural states (ICD-10) Surgical History S/P correction of deviated nasal septum ?Z98.890 - Other specified postprocedural states (ICD-10) S/P appendectomy ?Z90.49 - Acquired absence of other specified parts of digestive tract (ICD- 10) H/O hemorrhoidectomy ?Z98.890 - Other specified postprocedural states (ICD-10) H/O colonoscopy ?Z98.890 - Other specified postprocedural states (ICD-10) Family History Other Colon cancer Social History Narrative: 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 Smoking Status: Never smoker How often do you have a drink containing alcohol: 2-4 times a month Alcohol type: beer How many standard drinks containing alcohol do you have on a typical day: 1 or 2 How often do you have six or more drinks on one occasion: Never AUDIT-C Alcohol total score: 2 Non-prescribed substance use: denies use Caffeine: Yes (pop occ) Exam Const: Vital Signs, click to edit/add: Vital Signs - 24 hr 11/19/24 06:56 Temperature 97.4 F L Pulse Rate [Left P ulse Oximeter] 64 Respiratory Rate 20 Blood Pressure [Ri ght Upper Arm] 179/97 H Pulse Oximetry 97 Oxygen Delivery Me thod Room Air Documenting provider has reviewed patient's vital signs: yes Common normals: no apparent distress and alert General appearance: cooperative and well kempt HENMT: Common normals: normocephalic, moist oral mucous membranes and oropharynx normal Head and scalp: normocephalic Mouth: oral and palatal mucosa normal Eye: Common normals: conjunctivae normal General eye: normal appearance of both eyes Conjunctiva: conjunctiva(e) normal Neck & C-Spine: General: normal visual inspection Resp: Common normals: normal respiratory effort and no use of accessory muscles Effort & inspection: able to speak in complete sentences Cardio: Common normals: regular rate, regular rhythm, S1 normal heart sound, S2 normal heart sound and no murmurs Rate: regular rate Rhythm: regular rhythm Heart sounds: S1 normal and S2 normal GI: Common normals: Normal to inspection, nondistended, normoactive bowel sounds present, soft to palpation, no hepatosplenomegaly and no masses Palpation: soft and no hepatosplenomegaly Other: Mild to moderate tenderness in the left lower quadrant. No rebound tenderness or guarding. Other areas are nontender. Mass. : Common normals: no CVA tenderness Bladder/kidney exam: no CVA tenderness Back & Pelvis: Common normals: no CVA tenderness, thoracic and lumbar spine normal to inspection and no thoracic nor lumbar tenderness Neuro: Common normals: moves all extremities and no focal motor deficits Sensorium/orientation: alert Speech: speech normal Gait (neuro): normal gait (Observed on camera ambulating into ED) Motor exam: strength 5/5 throughout Psych: Appearance: well kempt Attitude: engaged Mood and affect: euthymic mood Attention/concentration: attention grossly intact M carlos/cognition: memory grossly intact Insight: insight good Judgement: judgment good Skin: Common normals: no rashes or lesions noted General skin exam: no rashes or lesions noted Course Course ED Course: 54-year-old male with left lower quadrant abdominal pain, rather insidious onset, achy and constant. Most likely kidney stone versus diverticulitis. Musculoskeletal etiology a little less likely but certainly possible. No rash that would make me suspicious of shingles but certainly could be other intra- abdominal processes like unusual presentation of pancreatitis, intestinal obstruction, less likely irritable bowel disease. Will place peripheral IV, obtain urinalysis. Toradol and Zofran for pain. CT of the abdomen and pelvis. I am electing to do this with contrast due to the fact that he has palpable tenderness. This would better distinguish between a kidney stone and diverticulitis. Await findings. May have to hand over care to incoming day shift partner. Reevaluation(s) Time of Reevaluation #1: 08:25 Reevaluation #1: Toradol did not improve patient's pain much, was given Dilaudid and this is doing much better. Counseled patient on the stone. He will call Urology in the morning, phone numbers were provided. By this she but this stone there is a chance it could pass but he is unfortunately likely to need urology intervention. Counseled on pain control Tylenol 1000 mg every 6 hours as needed for pain, prescription for 10 oxycodone tablets given 1-2 tablets q.6 hours p.r.n.. Prescription for Zofran provided as he reports that this can make him nauseated. We discussed Flomax, a 10 day course of this would be helpful. He may discontinue it if the stone does pass in the interim. Hopefully will cut down on the spasm pain for him. He has had thorough outpatient workup for the dilated biliary ducts. Will not pursue this further. Hesitant to put him on long-term NSAIDs due to his renal insufficiency. Alarm symptoms reviewed such as infection, weakness, signs of sepsis that would warrant more prompt ED evaluation. Written instructions provided. All questions answered. Vital Signs Vital signs: Initial Vital Signs Temperature 97.4 F L 11/19/24 06:56 Temperature Source Temporal Artery Scan 11/19/24 06:56 Pulse Rate 64 11/19/24 06:56 Pulse Rhythm Regular 11/19/24 06:56 Respiratory Rate 20 11/19/24 06:56 Blood Pressure 179/97 H 11/19/24 06:56 Blood Pressure Mean 124 H 11/19/24 06:56 Blood Pressure Position Sitting 11/19/24 06:56 Pulse Oximetry 97 11/19/24 06:56 Oxygen Delivery Method Room Air 11/19/24 06:56 Vital Signs Temperature 97.4 F L 11/19/24 06:56 Pulse Rate 64 11/19/24 06:56 Respiratory Rate 20 11/19/24 06:56 Blood Pressure 179/97 H 11/19/24 06:56 Pulse Oximetry 97 11/19/24 06:56 Oxygen Delivery Method Room Air 11/19/24 06:56 Temperature 97.4 F L 11/19/24 06:56 Pulse Rate 64 11/19/24 06:56 Respiratory Rate 20 11/19/24 06:56 Blood Pressure 179/97 H 11/19/24 06:56 Pulse Oximetry 97 11/19/24 06:56 Oxygen Delivery Method Room Air 11/19/24 06:56 Medications Administered Medications: Generic Name Dose Route Start Last Admin Trade Name Ashlee PRN Reason Stop Dose Admin Sodium Chloride 1,000 mls @ 1,000 mls/hr 11/19/24 07:59 11/19/24 08:06 0.9 % Sodium Chloride 1000 Ml IV 11/19/24 08:58 1,000 mls/hr .Q1H COLIN Administration Discontinued Medications Generic Name Dose Route Start Last Admin Trade Name Ashlee PRN Reason Stop Dose Admin Hydromorphone HCl 0.5 mg 11/19/24 07:58 11/19/24 08:06 Hydromorphone 0.5 Mg/0.5 Ml Inj IVP 11/19/24 07:59 0.5 mg ONCE ONE Administration Ketorolac Tromethamine 15 mg 11/19/24 07:14 11/19/24 07:25 Ketorolac 15 Mg/Ml Inj IVP 11/19/24 07:15 15 mg ONCE ONE Administration Ondansetron HCl 4 mg 11/19/24 07:14 11/19/24 07:25 Ondansetron 2 Mg/Ml Inj IVP 11/19/24 07:15 4 mg ONCE ONE Administration Medical Decision Making Lab Data Lab results reviewed: Yes I reviewed the patient's lab results Lab results narrative: Creatinine perfectly stable for patient. No significant leukocytosis, elevated inflammatory markers or other unexpected abnormalities. Normal lipase, normal LFTs. Urine suspicious for blood which is not surprising in the setting of kidney stone. No signs of urinary infection. Labs: Lab Results 11/19/24 11/19/24 11/19/24 Range/Units 07:00 07:20 07:27 WBC 8.24 (4.50-11.00) K/uL RBC 5.05 (4.30-5.90) m/uL Hgb 15.1 (13.5-17.5) gm/dL Hct 45.3 (37.0-53.0) % MCV 90 (80-100) fL MCH 30 (26-34) pg MCHC 33 (32-36) gm/dL RDW Coeff of Xiom[place] 13.1 (11.5-15.5) % Plt Count 271 (140-440) K/uL Neut % (Auto) 67.8 (42.0-72.0) % Lymph % (Auto) 23.1 (20-44) % [place] % (Auto) 7.3 (0.0-11.0) % Eos % (Auto) 1.5 (0.0-7.0) % Baso % (Auto) 0.2 (0.0-3.0) % Neut # (Auto) 5.59 (1.7-7.0) K/uL Lymph # (Auto) 1.90 (0.90-2.90) K/uL [place] # (Auto) 0.60 (0.00-0.90) K/UL Eos # (Auto) 0.12 (0.00-0.50) K/uL Baso # (Auto) 0.02 (0.00-0.30) K/uL Abs Immat Gran (auto) 0.01 (0.00-0.30) K/uL Imm/Tot Granulo (auto) 0.1 % Sodium 141 (135-149) mmol/L Potassium 3.7 (3.6-5.1) mmol/L Chloride 105 (96-114) mmol/L Carbon Dioxide 28 (20-32) mmol/L Anion Gap 8 (7-15) mEq/L BUN 17 (7-30) mg/dL Creatinine 1.7 H (0.5-1.5) mg/dL Estimated Creat Clear 55.49 Estimated GFR 47 ml/min Glucose 128 H (60-115) mg/dL Lactate 1.4 (0.5-1.9) mmol/L Calcium 8.7 (8.4-10.6) mg/dL Total Bilirubin 0.6 (0.1-1.5) mg/dL AST 29 (12-35) U/L ALT 26 (4-50) U/L Alkaline Phosphatase 108 (40-150) U/L C-Reactive Protein 0.6 (0.5-1.0) mg/dL Total Protein 7.6 (6.0-8.3) g/dL Albumin 4.5 (3.3-5.0) g/dL Lipase 61 (23-300) U/L Urine Color Yellow (Yellow) Urine Appearance Clear (Clear) Urine pH 6.5 (5.0-8.5) Ur Specific [place] 1.020 (1.000-1.030) Urine Protein 3+ A (Negative) Urine Glucose (UA) Negative (Negative) Urine Ketones Negative (Negative) Urine Blood 2+ A (Negative) Urine Nitrite Negative (Negative) Urine Bilirubin Negative (Negative) Urine Urobilinogen 0.2 (0.2-1.0) Ur Leukocyte Esterase Negative (Negative) Urine RBC 50-100 A (0-2) Urine WBC 0-2 (0-5) Ur Squamous Epith Cells Few (None-Few) Urine Bacteria Few A (None) Urine Mucus Moderate A (None) POC Creatinine 1.8 H (0.6-1.3) mg/dl Imaging Data CT scan - abdomen: Attestation: I have reviewed the pertinent imaging results. My impression: Large left distal ureteral stone with associated hydronephrosis Radiologist's impression: IMPRESSION: There is a 7 x 4 x 7 millimeter stone at the left UVJ with resulting moderate left hydronephrosis, hydroureter, and renal congestion. Slightly increased intra and extrahepatic biliary ductal dilation compared to prior. If LFTs are abnormal, consider previously suggested ERCP. Please note that all CT scans at this facility use dose modulation, iterative reconstruction, and/or weight-based dosing when appropriate to reduce radiation dose to as low as reasonably achievable. Dictated by Arlene Key MD @ 11/19/2024 8:11:49 AM Discharge Plan Discharge Clinical Impression: Left ureteral stone Patient Disposition: Home w/ Parent or Adult Condition: Improved Instructions: Ureteral Stones (ED), Ureteral Stent Placement (DC) Additional Instructions: As we discussed, you have a 7 mm stone on the left ureter, near the junction of the bladder. Typically once the size do need intervention to help pass but because of the shape of yours, there is a small chance you could pass this without assistance. I would like for you to strain your urine so that you will know if it does in fact past. Please call [place] [facility] at [phone] to secure an appointment within the next week or so. In the meantime, drink lots of fluids to help flush this through. For pain use Tylenol 1000 mg every 6 hours. I will give you a small supply of oxycodone to use for severe pain. Consider using a stool softener to help prevent constipation. Would also recommend we start you on Flomax, a medication that will help dilate open the urinary tract slightly and reduce spasm. If you have high fever, se gibson nausea and vomiting, signs of dehydration or other complication, please return to the emergency department in the meantime. I have also provided a prescription for Zofran, also known as ondansetron a common anti nausea medicine as kidney stones in this area do often cause nausea. Activity Level: Activity as Tolerated Discharge Diet: Regular Prescriptions: New tamsulosin [Flomax] 0.4 mg capsule 0.4 mg PO DAILY Qty: 10 1RF Rx Instructions: To help kidney stone pass, May discontinue once stone passes No Action amlodipine 10 mg tablet 10 mg PO QDAY allopurinol 200 mg tablet 200 mg PO QDAY Qty: 90 3RF prednisone 20 mg tablet 20 mg PO BID PRN Follow Up/Referrals: Zana Mejia MD [Primary Care Provider] - Stand Alone Forms: [employer] Info Instructions
[2024-11-19 07:16] LABS: Appearance Urine Clear (Clear); Bilirubin Urine Negative (Negative); Blood Urine 2+ (Negative); Color Urine Yellow (Yellow); Glucose Urine Negative (Negative); Ketones Urine Negative (Negative); Leukocyte Esterase Urine Negative (Negative); Nitrite Urine Negative (Negative); Protein Urine 3+ (Negative); Urobilinogen Urine 0.2 (0.2-1.0); pH Urine 6.5 (5.0-8.5)
[2024-11-19 07:23] LABS: Lactate* 1.4 mmol/L (0.5-1.9)
[2024-11-19 07:24] LABS: Basophils Absolute Auto 0.02 K/uL (0.00-0.30); Basophils Percent Auto 0.2 % (0.0-3.0); Eosinophils Absolute Auto 0.12 K/uL (0.00-0.50); Eosinophils Percent Auto 1.5 % (0.0-7.0); Hematocrit 45.3 % (37.0-53.0); Hemoglobin* 15.1 gm/dL (13.5-17.5); Immature Granulocytes Abs Auto 0.01 K/uL (0.00-0.30); Immature Granulocytes Pct Auto 0.1 %; Lymphocytes Percent Auto 23.1 % (20-44); Mean Corpuscular HGB Conc 33 gm/dL (32-36); Mean Corpuscular Hemoglobin 30 pg (26-34); Mean Corpuscular Volume 90 fL (80-100); Monocytes Percent Auto 7.3 % (0.0-11.0); Neutrophils Absolute Auto 5.59 K/uL (1.7-7.0); Neutrophils Percent Auto 67.8 % (42.0-72.0); Platelet Count* 271 K/uL (140-440); RDW Coefficient of Variation % 13.1 % (11.5-15.5); Red Blood Count 5.05 m/uL (4.30-5.90); White Blood Count* 8.24 K/uL (4.50-11.00)
[2024-11-19] MEDS: ONDANSETRON 2 MG/ML inj 4 MG IVP (07:25)
[2024-11-19] MEDS: KETOROLAC 15 MG/ML inj IVP (07:25)
[2024-11-19 07:28] LABS: Bacteria Urine Few; Mucus Urine Moderate; RBC Urine 50-100 (0-2); Squamous Epithelial Cell Urine Few (None-Few); WBC Urine 0-2 (0-5)
[2024-11-19 07:29] LABS: Slide Review Reflex No
[2024-11-19 07:37] LABS: Creatinine, Point-of-Care* 1.8 mg/dl (0.6-1.3)
[2024-11-19 07:40] LABS: Albumin* 4.5 g/dL (3.3-5.0); Chloride* 105 mmol/L (96-114); Sodium* 141 mmol/L (135-149)
[2024-11-19 07:41] LABS: Potassium* 3.7 mmol/L (3.6-5.1)
[2024-11-19 07:43] LABS: Alanine Aminotransferase* 26 U/L (4-50); Alkaline Phosphatase* 108 U/L (40-150); Anion Gap 8 mEq/L (7-15); Aspartate Amino Transferase* 29 U/L (12-35); Bilirubin Total* 0.6 mg/dL (0.1-1.5); Blood Urea Nitrogen* 17 mg/dL (7-30); Carbon Dioxide* 28 mmol/L (20-32); Creatinine* 1.7 mg/dL (0.5-1.5); Est. Creatinine Clearance* 55.49; Estimated Glomerular Filt Rate 47 ml/min; Total Protein* 7.6 g/dL (6.0-8.3)
[2024-11-19 07:44] LABS: Calcium* 8.7 mg/dL (8.4-10.6); Glucose* 128 mg/dL (60-115); Lipase* 61 U/L (23-300)
[2024-11-19 08:02] LABS: C Reactive Protein* 0.6 mg/dL (0.5-1.0)
[2024-11-19 08:05] VITALS: BP 141/78; PULSE 52; RESP 18; O2SAT 94
[2024-11-19] MEDS: 0.9 % SODIUM CHLORIDE 1000 ml 1,000 ML IV (08:06)
[2024-11-19] MEDS: HYDROmorphone 0.5 mg/0.5 ml inj IVP (08:06)
[2024-11-19] MEDS: TAMSULOSIN HCL 0.4 MG CAPSULE PO (08:29)
[2024-11-19 08:35] VITALS: BP 138/79; PULSE 54; RESP 16; O2SAT 95
--- OUTSIDE RECORDS SUMMARY | 2024-11-19 17:42 | XMS_ITS | Clinical Summary ---
Author Organization [facility] Address [address] [place] [address] Care Team Providers Care Trading Specialist Name Role Phone Unavailable Primary Care Provider Unavailabl e Source Comments Patient records contain information from all sites at [facility]. For routine questions regarding patient records, call [phone] during business hours, M-F 8:00 AM - 5:00 PM Central Time. Record requests for emergency care only can be directed to [phone] at any time.[facility] Allergies Active Allergy Reactions Criticality Noted Date Comments Alfuzosin Anxiety,Anaphylaxis High 09/05/2020 Oxycodone GI intolerance 04/07/2022 Medications predniSONE (DELTASONE) 10 mg tablet Take 1 tablet (10 mg total) by mouth as directed. For gout flare: 4 tablets day 1-2, 3 tablets day 3-4, 2 tablets day 5-6, 1 tablet day 7-8 then stop 22 tablet 3 06/14/2023 Active amLODIPine (NORVASC) 5 mg tablet Take 2 tablets (10 mg total) by mouth daily. 180 tablet 3 12/20/2023 5 Active allopurinoL (ZYLOPRIM) 100 mg tablet Take 2 tablets (200 mg total) by mouth daily. 180 tablet 3 12/20/2023 5 Active silodosin (Rapaflo) 4 mg capsule Take 1 capsule by mouth daily. 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 Stenosis Celiac Artery (HCC) (Primary Dx); Hypertensive Chronic Kidney Disease With Stage 1 Through Stage 4 Chronic Kidney Disease, Or Unspecified Chronic Kidney Disease; Celiac Artery Compression Syndrome (HCC); Urolithiasis 08/30/2024 10:11 AM TRAIN INSPECTOR - 08/30/2024 11:59 PM TRAIN INSPECTOR Hospital Encounter Department of Radiology, [facility], in [place], [place] [address] [place] [address] Saeed Geiger Jr., D.O. Hypertensive Chronic Kidney Disease With Stage 1 Through Stage 4 Chronic Kidney Disease, Or Unspecified Chronic Kidney Disease; Celiac Artery Compression Syndrome (HCC); Urolithiasis Discharge Disposition: Home or Self Care from Last 3 Months Social History Tobacco Use Types Packs/Day Years Used Date Smoking Tobacco: Never Smokeless Tobacco: Never Alcohol Use Standard Drinks/Week Comments Not Currently 0 (1 standard drink = 0.6 oz pur e alcohol) I might drink 1 beer a month [facility] Utilities Answer Date Recorded In the past 12 months has [employer], oil, or water [employer] threatened to shut off services in your home? No 08/29/2024 Exercise Vital Sign Answer Date Recorde d On average, how many days pe r week do you engage in moderate to strenuous exercise (like a brisk walk)? 5 days 08/29/2024 On average, how many minutes do you engage in exercise at this level? 30 min 08/29/2024 Hunger Vital Sign Answer Date Recorded Within the past 12 months, y ou worried that your food would run out before you got the money to buy more. Never true 08/29/19 25 Within the past 12 months, t he food you bought just didn't last and you didn't have money to get more. Never true 08/29/2024 PRAPARE - Transportation Answer Date Re corded In the past 12 months, has l ack of transportation kept you from medical appointments or from getting medications? No 08/06 In the past 12 months, has l ack of transportation kept you from meetings, work, or from getting things needed for daily living? No 08/29/2024 Nutrition Answer Date Recorded On average, how many serving s of fruits and vegetables do you eat per day (serving size is equal to 1 cup or approximately the size of a tennis ball)? 3-5 08/29/2024 Dental Answer Date Recorded Dental: Regular Dentist Yes 08/29/19 Employment Answer Date Recorded Employment status Employed and actively working without restrictions 08/29/2024 Housing Stability Answer Date Recorded What is your living situation today? I have a [facility] place to live 08/29/2024 Sex and Gender Information Value Date Recorded Sex Assigned at Male 08/29/2024 7:44 PM TRAIN INSPECTOR Legal Sex Male 9:18 PM TRAIN INSPECTOR Gender Identity Male 08/29/2024 7:44 PM TRAIN INSPECTOR Sexual Orientation Straight 08/29/2024 7: 44 PM TRAIN INSPECTOR Last Filed Vital Signs Vital Sign Reading Time Taken Comments Blood Pressure 129/80 08/30/2024 3:13 PM TRAIN INSPECTOR Pulse 62 08/30/2024 3:13 PM TRAIN INSPECTOR Temperature 36.5 C (97.7 F) 04/07/2022 2:09 PM CDT Respiratory Rate - - Oxygen Saturation - - Inhaled Oxygen Concentration - - Weight 106 kg (233 lb 4 oz) 08/30/2024 3:[address] Height 187.1 cm (6' 1.66) 08/30/2024 3:12 PM CS T Body Mass Index 30.22 08/30/2024 3:12 PM TRAIN INSPECTOR Plan of Treatment Health Maintenance Due Date Last Done Comments CT Colonography 1969 Cologuard 1969 FIT 1969 HIV Screening 1969 Hepatitis C Screening 1969 Hepatitis B Vaccines (1 of 3 - 19+ 3-dose series) 1988 Colonoscopy 11/05/2016 11/05/2006 Colorectal Cancer Screening 11/05/2016 Pneumococcal vaccine (50+ years) (1 of 1 - PCV) 2019 Zoster Vaccines (1 of 2) 2019 COVID-19 Vaccine (4 - season) 2024 08/01/2021, 12/11/2020, 10/23/2020 Influenza Vaccine (#1) 2024 , 08/03/2019, 06/04/2016, Additional history exists Depression Screening (Annual PHQ-2) 07/05/2024 Lipid (Cholesterol) Screening 08/02/2025 08/02/2024 Office Visit for Blood Pressure Check / Re-check 08/30/2025 08/30/2024 Fasting Glucose for Diabetes Screening 08/02/2027 08/02/2024, 06/08/2018 DTaP,Tdap,and Td Vaccines (3 - Td or Tdap) 03/05/2032 03/05/2022, 07/29/2010, 07/29/2010 IPV Vaccines Aged Out No longer eligi ble based on patient's age to complete this topic Procedures Procedure Name Priority Date/Time Associated Diagnosis Comments CT ABDOMEN ANGIOGRAM WITH IV CONTRAST RAD - Routine (most inpatients and all outpatients) 08/30/2024 11:24 AM TRAIN INSPECTOR Hypertensive Chronic Kidney Disease With Stage 1 Through Stage 4 Chronic Kidney Disease, Or Unspecified Chronic Kidney Disease Celiac Artery Compression Syndrome (HCC) Urolithiasis COMPREHENSIVE METABOLIC PANEL, S/P Routine 08/02/2024 8:53 AM TRAIN INSPECTOR LIPID PANEL, S Routine 08/02/2024 8:53 AM TRAIN INSPECTOR from Last 3 Months or Most Recently Relevant to Health Maintenance Results * CT Abdomen Angiogram with IV Contrast (08/30/2024 11:24 AM TRAIN INSPECTOR) Anatomical Region Laterality Modality Abdomen, Cardiovascular RST LOS, Abdominal ARZ LOS, Vascular Interventional ARZ LOS, Vascular Interventional FLA LOS, Abdominal FLA LOS, Procedural, Vascular Interventional NWWI LOS N/A Computed Tomography, Compute d Tomography 08/30/2024 11:2 8 AM TRAIN INSPECTOR Impressions 08/30/2024 2:26 PM TRAIN INSPECTOR 1. High-grade proximal narrowing of the celiac axis, slightly more prominent on expiratory images. 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 2. No renal artery stenosis. Unchanged small left renal stone. Narrative 08/30/2024 2:26 PM TRAIN INSPECTOR EXAM: CT ABDOMEN ANGIOGRAM WITH IV CONTRAST, performed with inspiratory and expiratory views, using our median arcuate ligament compression protocol, including 3D image post-processing performed with or without AI assistance. COMPARISON: CT ABDOMEN ANGIOGRAM WITH IV CONTRAST dated June 22, 2022 VASCULAR FINDINGS: ABDOMINAL AORTA AND ILIAC ARTERIES: Normal caliber abdominal aorta and proximal bilateral common iliac arteries. No obvious aortoiliac atherosclerotic plaque. No abdominal aortic stenosis. VISCERAL ARTERIES: Celiac artery: No visualized atherosclerotic plaque. * Expiratory images: High-grade proximal stenosis. * Inspiratory images: Significant proximal stenosis, slightly less marked than on expiratory images. Superior mesenteric artery: Widely patent without visualized atherosclerotic plaque. Prominent pancreaticoduodenal collaterals. Inferior mesenteric artery: Small caliber, patent vessel. RENAL ARTERIES: Right renal arteries: Multiple (3) renal arteries. No obvious stenosis. Left renal arteries: Single renal artery. Widely patent. ADDITIONAL FINDINGS: Small, nonobstructive stone in the lower pole of the left kidney, similar to the prior examination. No calculi in the visualized ureters bilaterally. Biventricular enlargement, partially visualized. Cavernous hemangiomas in the liver. Low-attenuation, presumed cysts in the liver, unchanged since prior examination. Atelectasis and mild air trapping in the lung bases. Cholecystectomy. Duodenal diverticulum. Procedure Note Isra Polo M.D. - 08/30/2024 EXAM: CT ABDOMEN ANGIOGRAM WITH IV CONTRAST, performed with inspiratoryand expiratory views, using our median arcuate ligament compressionprotocol, including 3D image post-processing performed with or without AIassistance. COMPARISON: CT ABDOMEN ANGIOGRAM WITH IV CONTRAST dated June VASCULAR FINDINGS: ABDOMINAL AORTA AND ILIAC ARTERIES: Normal caliber abdominal aorta and proximal bilateral common iliacarteries. No obvious aortoiliac atherosclerotic plaque. No abdominalaortic stenosis. VISCERAL ARTERIES: Celiac artery: No visualized atherosclerotic plaque. * Expiratory images: High-grade proximal stenosis. * Inspiratory images: Significant proximal stenosis, slightly less markedthan on expiratory images. Superior mesenteric artery: Widely patent without visualizedatherosclerotic plaque. Prominent pancreaticoduodenal collaterals. Inferior mesenteric artery: Small caliber, patent vessel. RENAL ARTERIES: Right renal arteries: Multiple (3) renal arteries. No obvious stenosis. Left renal arteries: Single renal artery. Widely patent. ADDITIONAL FINDINGS: Small, nonobstructive stone in the lower pole of the left kidney, similarto the prior examination. No calculi in the visualized uretersbilaterally. Biventricular enlargement, partially visualized. Cavernous hemangiomas inthe liver. Low-attenuation, presumed cysts in the liver, unchanged sinceprior examination. Atelectasis and mild air trapping in the lung bases.Cholecystectomy. Duodenal diverticulum. IMPRESSION: 1. High-grade proximal narrowing of the celiac axis, slightly moreprominent on expiratory images. Findings are consistent with medianarcuate ligament configuration. 2. No renal artery stenosis. Unchanged small left renal stone. Kay Infante Jr..O. IMG CT PROCEDURES Fi nal Result * (ABNORMAL) Lipid Panel (08/02/2024 8:53 AM TRAIN INSPECTOR) EXT Triglycerides, S 230(H) 40 - 149 mg/dL [facility] EXT Cholesterol, Total, S 220(H) 90 - 199 mg/dL [facility] EXT Calculated LDL 132(H) <100 mg/dL [facility] EXT Cholesterol, HDL, S 42 >=40 mg/dL [facility] 08/02/2024 8:53 AM TRAIN INSPECTOR Narrative [facility] - 08/02/2024 1:27 PM TRAIN INSPECTOR Source result document attached to Order Number [id number] ([id number]) dated 08/02/2024. External results verified in Extract by Clara Calvert on 08/02/2024 at 01:25 PM. us Ordering Provider External M.D. LAB BLOOD ADD-ON Final Result [facility] [address] [place] [address], [facility] [phone] * (ABNORMAL) Comprehensive Metabolic Panel (08/02/2024 8:53 AM TRAIN INSPECTOR) Pathologist [facility] EXT Sodium 139 135 - 149 mmol/L [facility] EXT Potassium 4.4 3.6 - 5.1 mmol/L [facility] EXT Chloride 100 96 - 114 mmol/L [facility] EXT CO2 29 20 - 32 mmol/L [facility] EXT Anion Gap 10 7 - 15 mEq/L [facility] EXT BUN (Blood Urea Nitrogen) 17 7 - 30 mg/dL [facility] EXT Creatinine 1.7(H) 0.5 - 1.5 mg/dL [facility] EXT Estimated GFR (eGFR) 47 ML [facility] EXT Calcium, Total 9.3 8.4 - 10.6 mg/dL [facility] EXT Glucose 102 60 - 115 mg/dL [facility] EXT Albumin 4.5 3.3 - 5.0 g/dL [facility] EXT AST 23 12 - 35 U/L [facility] EXT ALT 24 4 - 50 U/L [facility] 08/02/2024 8:53 AM TRAIN INSPECTOR Narrative [facility] - 08/02/2024 1:27 PM TRAIN INSPECTOR External results verified in Extract by Clara Calvert on 08/02/2024 at 01:25 PM. us Ordering Provider External Stacy LAB BLOOD ADD-ON Final Result [facility] [address] [place] [address], [facility] [phone] from Last 3 Months or Most Recently Relevant to Health Maintenance Insurance [facility]
--- OUTSIDE RECORDS SUMMARY | 2024-11-19 17:42 | XMS_ITS | Clinical Summary ---
Author Organization [facility] Address [address] [place] [address]. [place] [address] Care Team Providers Care Lag Screwer Name Role Phone Zana Mejia MD Primary Care Provider Allergies Active Allergy Reactions Criticality Noted Date Comments Alfuzosin Anaphylaxis,Anxiety, Dizziness, Swelling High 09/05/2020 Codeine 07/21/2024 disassociation Oxycodone Nausea and Vomiting 07/21/2024 Medications allopurinol (ZYLOPRIM) 100 MG tablet Take 200 mg by mouth daily. Active amLODIPine (NORVASC) 10 MG tablet Take 10 mg by mouth daily. Active predniSONE (DELTASONE) 20 MG tablet Take 20 mg by mouth 2 times daily as needed. Active Social History Tobacco Use Types Packs/Day Years Used Date Smoking Tobacco: Never Smokeless Tobacco: Never Tobacco Cessation:Counseling Given: Not Answered Alcohol Use Standard Drinks/Week Comments Yes 0 (1 standard drink = 0.6 oz pur e alcohol) 2-4 month Interpersonal Safety Answer Date Record ed Do you feel physically and e motionally safe where you currently live? Yes 07/31/2024 Within the past 12 months, h ave you been hit, slapped, kicked or otherwise physically hurt by someone? No 07/31/2024 Within the past 12 months, h ave you been humiliated or emotionally abused in other ways by your partner or ex-partner? 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 Gender Identity Not on file Sexual Orientation Not on file Last Filed Vital Signs Vital Sign Reading Time Taken Comments Blood Pressure 126/86 07/31/2024 2:05 PM POULTICE MACHINE OPERATOR Pulse 56 07/31/2024 2:05 PM POULTICE MACHINE OPERATOR Temperature 36.8 C (98.2 F) 07/31/2024 2:05 PM POULTICE MACHINE OPERATOR Respiratory Rate 16 07/31/2024 1:30 PM POULTICE MACHINE OPERATOR Oxygen Saturation 95% 07/31/2024 2:05 PM POULTICE MACHINE OPERATOR Inhaled Oxygen Concentration - - Weight 104.5 kg (230 lb 6.4 oz) 025 11:04 AM POULTICE MACHINE OPERATOR Height 185.4 cm (6' 1) 07/21/2024 2:00 PM POULTICE MACHINE OPERATOR Body Mass Index 30.4 07/21/2024 2:00 PM POULTICE MACHINE OPERATOR Plan of Treatment Health Maintenance Due Date Last Done Comments ADVANCE CARE PLANNING 1969 ANNUAL REVIEW OF HM ORDERS 1969 CT COLONOGRAPHY 1969 DIABETES SCREENING 1969 FIT 1969 FLEX SIG 1969 URIC ACID 1969 sDNA (Cologuard) 1969 YEARLY PREVENTIVE VISIT 1972 HIV SCREENING 1984 HEPATITIS C SCREENING 1987 HEPATITIS B IMMUNIZATION (1 of 3 - 19+ 3-dose series) 1988 LIPID 2009 COLONOSCOPY 11/05/2016 11/05/2006 COLORECTAL CANCER SCREENING 11/05/2016 Pneumococcal Vaccine: 50+ Years (1 of 1 - PCV) 2019 ZOSTER IMMUNIZATION (1 of 2) 2019 COVID-19 Vaccine (4 - season) 2024 08/01/2021, 12/11/2020, 10/23/2020 PHQ-2 (once per calendar year) 2024 INFLUENZA VACCINE (Season Ended) 2025 05/16/2020, 08/03/2019, 06/04/2016, Additional history exists DTAP/TDAP/TD IMMUNIZATION (4 - Td or Tdap) 03/05/2032 03/05/2022, 07/29/2010, 07/29/2010 HPV IMMUNIZATION Aged Out No longer e ligible based on patient's age to complete this topic MENINGITIS IMMUNIZATION Aged Out No l onger eligible based on patient's age to complete this topic Insurance [facility] INDIVIDUAL FAMILY PLANS [facility] INDIV[employer]UAL FAMILY PLANS Care Teams Lag Screwer Relationship Specialty Start Date End Date Zana Mejia MD [facility] [address] [place] [address] PCP - General Emergency Medicine 07/25/24
--- OUTSIDE RECORDS SUMMARY | 2024-11-19 17:42 | XMS_ITS | Clinical Summary ---
Author Organization [facility] Address [address] [place] [id number] Care Team Providers Care Medical Reception Name Role Phone Unknown, Doctor Primary Care Provider Unavailabl e Allergies Active Allergy Reactions Criticality Noted Date Comments Alfuzosin Dizziness,Throat Swelling/Closing High Codeine Intolerance-Can't Take 11/05/2006 dizziness Medications allopurinol (ZYLOPRIM) 100 mg tabletIndication s:Gout involving toe of right foot, unspecified cause, unspecified chronicity Take 1 tablet by mouth once daily. 30 tablet 2 06/14/2018 Active Silodosin 4 mg capIndications:W eak urine stream Take 1 capsule by mouth once daily. 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 Gender Identity Not on file Sexual Orientation [...] age 18+ 1987 Hepatitis C screening for ag e 18-79 1987 Lipids for age 45-75 2014 Colonoscopy through age 75 11/05/2016 11/05/2006, Pneumococcal series for age 50+ (1 of 1 - PCV) 2019 Zoster (shingles) series for age 50+ (1 of 2) 2019 Tetanus booster 07/29/2020 07/29/2010, 07/06, 07/29/2010 COVID-19 vaccine series ( season) 2024 08/01/2021, 12/11/2020, 10/23/2020 Influenza Vaccine (Season Ended) 2025 05/16/2020, 08/03/2019, 06/04/2016, Additional history exists Tdap Completed 07/29/2010, 07/29/2010 Procedures Procedure Name Priority Date/Time Associated Diagnosis Comments SCAN-COLONOSCOPY 11/05/2006 11:2 7 AM CDT from Last 3 Months or Most Recently Relevant to Health Maintenance Results * SCAN-COLONOSCOPY (11/05/2006 11:27 AM CDT) us Scanner OTHER Final Result from Last 3 Months or Most Recently Relevant to Health Maintenance [place] [id number] [facility] Care Teams Medical Reception Relationship Specialty Start Date End Date Unknown, Doctor . PCP - General 03/03/06
== END 2024-11-19 08:48 | disposition home or self-care (01) ==
PROVIDERS: Emergency Provider Family Medicine; PCP Internal Medicine
DX: N20.1 Calculus of ureter (principal); R33.9 Retention of urine, unspecified; R10.2 Pelvic and perineal pain; Z79.899 Other long term (current) drug therapy
CPT/HCPCS: 36415; 74177; 80053; 81001; 81003; 82565; 83605; 83690; 85025; 86140; 87086; 96374; 96375; 99284; 99285; A9270; J1171; J1885; J2405; J7030; Q9967

== ENCOUNTER 2025-01-01 08:14 | Outpatient (CLI) | payer OTHER, SELFPAY | END 2025-01-01 08:15 | disposition home or self-care (01) | LOC: NFLDREF 01-02 14:46 | PROVIDERS: PCP Internal Medicine; Referring Provider Internal Medicine; Visit Provider Internal Medicine | DX: Z01.818 Encounter for other preprocedural examination (principal) | CPT/HCPCS: 87086 ==

== ENCOUNTER 2025-03-14 11:37 | Outpatient (CLI) | payer OTHER, SELFPAY | END 2025-03-14 11:38 | disposition home or self-care (01) | LOC: NFLDREF 03-19 14:31 | PROVIDERS: PCP Internal Medicine; Referring Provider Internal Medicine; Visit Provider Internal Medicine Nephrology | DX: N18.9 Chronic kidney disease, unspecified (principal); M10.9 Gout, unspecified; N20.9 Urinary calculus, unspecified; E78.5 Hyperlipidemia, unspecified; I12.9 Hypertensive chronic kidney disease with stage 1 through stage 4 chronic kidney disease, or unspecified chronic kidney disease; I10 Essential (primary) hypertension; E66.9 Obesity, unspecified; K76.89 Other specified diseases of liver | CPT/HCPCS: 80061; 80069; 82043; 82570; 83970; 84450; 84460; 84550; 86140 ==

== ENCOUNTER 2025-04-18 09:52 | Outpatient (CLI) | payer OTHER, SELFPAY | END 2025-04-18 09:53 | disposition home or self-care (01) | LOC: NFLDREF 09:52 | PROVIDERS: PCP Internal Medicine; Visit Provider Internal Medicine | DX: N40.0 Benign prostatic hyperplasia without lower urinary tract symptoms (principal) | CPT/HCPCS: G0103 ==